=== PATIENT | male | born 1965 | race Caucasian/White ===

== ENCOUNTER 2018-05-07 11:01 | Inpatient (IN) ==
--- NOTE | 2018-05-07 11:47 | Diag Imaging Result Doc PS360 ---
EXAM: CHEST-2 VIEWS HISTORY: cough TECHNIQUE: PA and Lateral chest x-ray COMPARISON: None. FINDINGS: There is cardiomegaly. There is a moderate left pleural effusion with associated left lower lobe consolidation. There may be a hiatal hernia as well. Right lung is clear. Pulmonary vasculature is not congested. No pneumothorax. IMPRESSION: Moderate left pleural effusion with associated left lower lobe consolidation. . Electronically signed by Ne Latif 05/07/2018 11:44 AM
[2018-05-07 11:58] LABS: INFLUENZA A NEGATIVE (NEGATIVE); INFLUENZA B NEGATIVE (NEGATIVE)
[2018-05-07 12:50] LABS: BASO# 0.03 X1000 (0.0-0.2); BASO% 0.2 % (0.0-0.8); EOS# 0.25 X1000 (0.0-0.7); EOS% 1.8 % (0.0-10.0); HEMATOCRIT 39.2 % (42.0-52.0); HEMOGLOBIN 12.8 g/dL (14.0-18.0); IMM GRAN# 0.06 X1000 (0.0-0.04); IMM GRAN% 0.4 % (0.0-0.5); LYMPH# 0.96 X1000 (1.2-3.4); LYMPH% 6.7 % (20.5-51.1); MCH 30.8 PG (27-31); MCHC 32.7 g/dL (33-37); MCV 94.2 FL (81-99); MONO# 1.82 X1000 (0.11-0.59); MONO% 12.8 % (1.7-9.3); MPV 10.1 FL (7.4-10.4); NEUT# 11.15 X1000 (1.4-6.5); NEUT% 78.1 % (42.2-75.2); PLT 330 X1000 (130-400); RBC 4.16 XMIL (4.7-6.1); RDW 16.5 % (11.5-14.5); WBC 14.27 X1000 (4.8-10.8)
[2018-05-07 13:04] LABS: INR 1.06; PROTIME 14.3 Seconds (11.0-16.0)
[2018-05-07 13:05] LABS: PTT 33.4 Seconds (22.3-41.8)
[2018-05-07 13:10] LABS: AGAP 11; ALBUMIN 3.5 g/dL (3.5-5.0); ALKALINE PHOSPHATASE 82 U/L (32-122); BUN 5 mg/dL (8-22); CALCIUM 8.2 mg/dL (8.8-10.2); CHLORIDE 101 mmol/L (98-107); COSMO 279; CREATININE 0.9 mg/dL (0.7-1.2); ESTIMATED GFR > 60; GLUCOSE 113 mg/dL (70-104); GOT 11 U/L (10-34); GPT 9 U/L (10-44); POTASSIUM 3.3 mmol/L (3.5-5.1); SODIUM 141 mmol/L (136-145); TCO2 28 mmol/L (25-35); TOTAL PROTEIN 5.9 g/dL (6.3-8.3)
[2018-05-07 13:55] LABS: BILIRUBIN URINE NEGATIVE (NEGATIVE); BLOOD URINE NEGATIVE (NEGATIVE); CLARITY SL. CLOUDY (CLEAR); COLOR YELLOW; GLUCOSE URINE NEGATIVE (NEGATIVE); KETONE URINE NEGATIVE (NEGATIVE); LEUKOCYTES URINE NEGATIVE (NEGATIVE); NITRITE URINE NEGATIVE (NEGATIVE); PROTEIN URINE NEGATIVE (NEGATIVE); UROBILINOGEN URINE NORMAL
[2018-05-07] MEDS ORDERED: VANCOMYCIN 1 GM/NS 1 GM/250 ML IVPB IV ONE (13:55)
[2018-05-07 14:10] LABS: URINE BACTERIA 1+ /HFP
[2018-05-07 14:11] LABS: URINE CAST NONE SEEN /LPF; URINE CRYSTAL NONE SEEN /HPF; URINE EPITHELIAL CELLS <10 /HPF (<10); URINE SOURCE CLEAN CATCH; URINE YEAST NONE SEEN /HPF
[2018-05-07 14:21] LABS: INFLUENZA A NEGATIVE (NEGATIVE); INFLUENZA B NEGATIVE (NEGATIVE)
[2018-05-07] MEDS ORDERED: NS 1,000 ML IV ONE ×3 (14:25→16:02)
--- NOTE | 2018-05-07 14:39 | EKG Report ---
Test Performed on : 05/07/2018 12:40:09 PM Test Reason : ER Blood Pressure : / mmHG Vent. Rate : 101 BPM Atrial Rate : 101 BPM P-R Int : 152 ms QRS Dur : 082 ms QT Int : 336 ms P-R-T Axes : 037 003 240 degrees QTc Int : 435 ms Sinus tachycardia. with fusion complexes Left ventricular hypertrophy with repolarization abnormality Possible Inferior infarct , age undetermined Anterior infarct , age undetermined Abnormal ECG No previous ECGs available Unconfirmed Result
[2018-05-07] MEDS ORDERED: MERREM 1 GM in NS 50 ML IV ONE (15:24)
[2018-05-07] MEDS ORDERED: DUONEB (A & A) INH ONE (16:02)
[2018-05-07] MEDS ORDERED: MORPHINE IV ONE (16:02)
[2018-05-07] MEDS ORDERED: TYLENOL PO PRN (16:02)
[2018-05-07] MEDS ORDERED: ZOFRAN IV ONE (16:02)
[2018-05-07] MEDS ORDERED: DUONEB (A & A) INH SCH (16:02)
--- NOTE | 2018-05-07 17:51 | PROVIDER DOCUMENTATION ---
This chart was entered by Janay Mcadams Scribe, acting as scribe for Amadeo Mcadams MD. HPI-Chest Pain - General Chief Complaint: General Adult Stated Complaint: POSS. PNEUMONIA Time Seen by Provider: 05/07/18 11:57 Source: patient, family Allergies/Adverse Reactions: Patient Allergies Allergy/AdvReac Type Severity Reaction Status Date / Time Penicillins Allergy Unknown Verified 05/07/18 11:09 Home Medications: Home Medication List Medication Instructions Recorded Confirmed Last Taken Type Methocarbamol [Robaxin-750] 750 mg PO TID #15 tab 07/20/17 05/07/18 Unknown Rx Aspirin [Lo-Dose Aspirin EC] 1 tab PO DAILY 05/07/18 05/07/18 Unknown History Clonidine HCl 1 tab PO BID 05/07/18 05/07/18 Unknown History Clopidogrel Bisulfate [Clopidogrel] 1 tab PO DAILY 05/07/18 05/07/18 Unknown History Diazepam 1 tab PO PRN PRN 05/07/18 05/07/18 Unknown History Enalapril Maleate 1 tab PO DAILY 05/07/18 05/07/18 Unknown History Methotrexate 15 mg PO DIRECTED 05/07/18 05/07/18 Unknown History Pantoprazole Sodium [Protonix] 1 tab PO DAILY 05/07/18 05/07/18 Unknown History Prednisone 1 tab PO DAILY 05/07/18 05/07/18 Unknown History Tamsulosin HCl 1 cap PO DAILY 05/07/18 05/07/18 Unknown History Tramadol HCl/Acetaminophen 1 tab PO PRN PRN 05/07/18 05/07/18 Unknown History [Tramadol-Acetaminophn 37.5-325] - History of Present Illness-CP Nature of Presenting Problem: 53 yom with cardiac stents, RA and recent hx of pna presents to ed with cc of chest pains intermittently sternal since last monday. Sharp in nature. Reports last monday started having cp and cough went to urgent care dx with pna and tx with levaquin, rocephin and steroid. Reports feeling better until yesterday when started having sob, fever and sternal chest pain sharp that radiates into neck and back. Reports has a followup CT tomorrow at the [facility].. Hx of interstitial fibrosis, copd. Sees Dr. Tai in [place] for [facility]. Location: reports: substernal Chest Pain Radiation: reports: neck, back Quality of Pain: reports: sharp Severity in ED: moderate (08/13) Onset/Duration: 24 hours ago Timing: still present, intermittent Review of Systems - Adult - REVIEW OF SYSTEMS - ADULT Constitutional: reports: fever. denies: chills, fatique Eyes: reports: no symptoms reported Ears, Nose, Mouth & Throat: denies: ear pain, sinus problem, throat pain Cardiovascular: reports: chest pain. denies: irregular heart rate, orthopnea, syncope Respiratory: reports: cough, shortness of breath. denies: dyspnea on exertion, pleurisy, wheezing Gastrointestinal: denies: abdominal pain, diarrhea, nausea, vomiting Genitourinary: reports: no symptoms reported Musculoskeletal: reports: no symptoms reported Integumentary: reports: no symptoms reported Neurological: reports: no symptoms reported Psychiatric: reports: no symptoms reported Endocrine: reports: no symptoms reported Hematologic/Lymphatic: reports: no symptoms reported Allergic/Immunologic: reports: no symptoms reported All Other Systems: Reviewed and Negative Past History - Adult - PAST MEDICAL HISTORY-ADULT Review of Records: reports: Nursing Assessment Review Major Childhood Illnesses: reports: denies history Cardiovascular: reports: HTN Respiratory: reports: COPD, lung disease, pneumonia Gastrointestinal: reports: denies history Obstetrical/Gynecological: reports: denies history Genitourinary: reports: denies history Musculoskeletal: reports: denies history Neurological: reports: denies history Endocrine/Immune: reports: denies history Other Conditions: reports: denies history - PRIOR SURGERIES/PROCEDURES Surgical/Procedure History: reports: cardiac stent, other (renal stents) - IMMUNIZATION STATUS Childhood Immunizations: See Nurse Assessment Flu Vaccine: See Nurse Assessment - FAMILY HISTORY Family History: reviewed, not pertinent - SOCIAL HISTORY Smoking: cigarettes, less than 1 pack/day Provider spent 3-5 mins advising pt. on dangers of tobacco.: Discussed manners to quit use, and f/u contacts for add'l counseling. Substance Use: none/never Physical Exam-General - PHYSICAL EXAM-ADULT Initial Vital Signs Reviewed: Yes - CONSTITUTIONAL General Appearance: appears well, alert, mild distress - EYES Eyes: PERRL/EOMI, pink conjunctivae - HEAD, EARS, NOSE, MOUTH & THROAT HENMT: moist mucous membranes - NECK Neck: non-tender, full range of motion, supple, normal inspection - RESPIRATORY Respiratory: chest non-tender, no pleuratic chest pain, no respiratory distress , no accessory muscle use, rales (more prominent on right than left), rhonchi ( more prominent on right than left.) - CARDIOVASCULAR Cardiovascular: no edema, no gallop, no JVD, no murmur, tachycardia - GASTROINTESTINAL (ABDOMEN) Abdominal Exam: non tender, soft, no organomegaly, no pulsatile mass - LYMPHATIC Lymphatic: no adenopathy - MUSCULOSKELETAL Back Exam: normal inspection Extremity: normal range of motion, non-tender, normal gait, pedal edema ( bilaterally) - SKIN Integumentary: normal color, normal turgor, warm/dry - NEUROLOGIC Neurologic: grossly normal - PSYCHIATRIC Psych/Mental Status: normal mood/affect, normal thought content, normal thought process, oriented x 3 - HEART Score HEART Score: History: Moderately Suspicious HEART Score: ECG: Non-Specific Repolarization Disturbance/LBBB/PM HEART Score: Age: 45-65 Years HEART Score: Risk Factors for Atherosclerotic Disease: 1 or 2 Risk Factors HEART Score: Troponin: < or = Normal Limit Total HEART Score:: 4 Progress - PLAN OF CARE/RESULTS Progress/Plan/Lab Results: Vital Signs - 8 hr 05/07/18 11:04 05/07/18 13:08 05/07/18 14:00 Temperature 98.4 F Pulse Rate 84 112 H 77 Respiratory Rate 20 22 20 Blood Pressure 145/59 143/88 147/102 O2 Sat by Pulse Oximetry 98 96 97 Laboratory Results - last 24 hr 05/07/18 05/07/18 05/07/18 11:05 12:20 12:20 WBC 14.27 H RBC 4.16 L Hgb 12.8 L Hct 39.2 L MCV 94.2 MCH 30.8 MCHC 32.7 L RDW Std Deviation 16.5 H Plt Count 330 MPV 10.1 Immature Gran % (Auto) 0.4 Neut % (Auto) 78.1 H Lymph % (Auto) 6.7 L Dukes % (Auto) 12.8 H Eos % (Auto) 1.8 Baso % (Auto) 0.2 Immature Gran # (Auto) 0.06 H Neut # (Auto) 11.15 H Lymph # (Auto) 0.96 L Dukes # (Auto) 1.82 H Eos # (Auto) 0.25 Baso # (Auto) 0.03 PT INR PTT (Actin FS) Sodium 141 Potassium 3.3 L Chloride 101 Carbon Dioxide 28 Anion Gap 11 BUN 5 L Creatinine 0.9 Estimated GFR/1.73 m2 > 60 BUN/Creatinine Ratio 6 Glucose 113 H Calculated Osmolality 279 Calcium 8.2 L Magnesium Total Bilirubin 0.80 AST 11 ALT 9 L Alkaline Phosphatase 82 Troponin T [id number] Pept Total Protein 5.9 L Albumin 3.5 Globulin 2.0 Albumin/Globulin Ratio 1.0 Plasma Lactate Urine Source Urine Color Urine Clarity Urine pH Ur Specific [place] Urine Protein Urine Ketones Urine Blood Urine Nitrite Urine Bilirubin Urine Urobilinogen Urine Microscopic RBC Urine WBC Ur Epithelial Cells Urine Crystals Urine Bacteria Urine Casts Urine Yeast Urine Glucose Influenza A (Rapid) NEGATIVE Influenza B (Rapid) NEGATIVE 05/07/18 05/07/18 05/07/18 12:20 12:20 12:20 WBC RBC Hgb Hct MCV MCH MCHC RDW Std Deviation Plt Count MPV Immature Gran % (Auto) Neut % (Auto) Lymph % (Auto) Dukes % (Auto) Eos % (Auto) Baso % (Auto) Immature Gran # (Auto) Neut # (Auto) Lymph # (Auto) Dukes # (Auto) Eos # (Auto) Baso # (Auto) PT 14.3 INR 1.06 PTT (Actin FS) 33.4 Sodium Potassium Chloride Carbon Dioxide Anion Gap BUN Creatinine Estimated GFR/1.73 m2 BUN/Creatinine Ratio Glucose Calculated Osmolality Calcium Magnesium 2.0 Total Bilirubin AST ALT Alkaline Phosphatase Troponin T [id number]-Imyiwtxrrcx Pept Total Protein Albumin Globulin Albumin/Globulin Ratio Plasma Lactate 0.9 Urine Source Urine Color Urine Clarity Urine pH Ur Specific [place] Urine Protein Urine Ketones Urine Blood Urine Nitrite Urine Bilirubin Urine Urobilinogen Urine Microscopic RBC Urine WBC Ur Epithelial Cells Urine Crystals Urine Bacteria Urine Casts Urine Yeast Urine Glucose Influenza A (Rapid) Influenza B (Rapid) 05/07/18 05/07/18 05/07/18 12:20 12:20 13:04 WBC RBC Hgb Hct MCV MCH MCHC RDW Std Deviation Plt Count MPV Immature Gran % (Auto) Neut % (Auto) Lymph % (Auto) Dukes % (Auto) Eos % (Auto) Baso % (Auto) Immature Gran # (Auto) Neut # (Auto) Lymph # (Auto) Dukes # (Auto) Eos # (Auto) Baso # (Auto) PT INR PTT (Actin FS) Sodium Potassium Chloride Carbon Dioxide Anion Gap BUN Creatinine Estimated GFR/1.73 m2 BUN/Creatinine Ratio Glucose Calculated Osmolality Calcium Magnesium Total Bilirubin AST ALT Alkaline Phosphatase Troponin T < 0.010 Ndf-N-Whknqiiqtkg Pept 1170 H Total Protein Albumin Globulin Albumin/Globulin Ratio Plasma Lactate Urine Source CLEAN CATCH Urine Color YELLOW Urine Clarity SL. CLOUDY A Urine pH 7.0 Ur Specific [place] 1.000 Urine Protein NEGATIVE Urine Ketones NEGATIVE Urine Blood NEGATIVE Urine Nitrite NEGATIVE Urine Bilirubin NEGATIVE Urine Urobilinogen NORMAL Urine Microscopic RBC Not Reportable Urine WBC NEGATIVE Ur Epithelial Cells <10 Urine Crystals NONE SEEN Urine Bacteria 1+ Urine Casts NONE SEEN Urine Yeast NONE SEEN Urine Glucose NEGATIVE Influenza A (Rapid) Influenza B (Rapid) 05/07/18 13:45 WBC RBC Hgb Hct MCV MCH MCHC RDW Std Deviation Plt Count MPV Immature Gran % (Auto) Neut % (Auto) Lymph % (Auto) Dukes % (Auto) Eos % (Auto) Baso % (Auto) Immature Gran # (Auto) Neut # (Auto) Lymph # (Auto) Dukes # (Auto) Eos # (Auto) Baso # (Auto) PT INR PTT (Actin FS) Sodium Potassium Chloride Carbon Dioxide Anion Gap BUN Creatinine Estimated GFR/1.73 m2 BUN/Creatinine Ratio Glucose Calculated Osmolality Calcium Magnesium Total Bilirubin AST ALT Alkaline Phosphatase Troponin T Fjw-M-Zigyqdsydks Pept Total Protein Albumin Globulin Albumin/Globulin Ratio Plasma Lactate Urine Source Urine Color Urine Clarity Urine pH Ur Specific [place] Urine Protein Urine Ketones Urine Blood Urine Nitrite Urine Bilirubin Urine Urobilinogen Urine Microscopic RBC Urine WBC Ur Epithelial Cells Urine Crystals Urine Bacteria Urine Casts Urine Yeast Urine Glucose Influenza A (Rapid) NEGATIVE Influenza B (Rapid) NEGATIVE Orders Category Date Time Status Saline Loc NOW Care 05/07/18 11:08 Active CHEST-2 VIEWS [RAD] Stat Exams 05/07/18 11:08 Completed BLOOD CULTURE [BLDCUL] Stat Lab 05/07/18 12:30 Received CBC WITH DIFF [HEME] Stat Lab 05/07/18 12:20 Completed COMPREHENSIVE METABOLIC PANEL [CHEM] Stat Lab 05/07/18 12:20 Completed Flu [INFLUENZA SCREEN PL] Stat Lab 05/07/18 11:[address] Stat Lab 05/07/18 13:45 Completed LACTATE, PLASMA [CHEM] Stat Lab 05/07/18 12:20 Completed MAGNESIUM [CHEM] Stat Lab 05/07/18 12:20 Completed PRO B-NATRIURETIC PEPTIDE Stat Lab 05/07/18 12:20 Completed PROTIME WITH INR [COAG] Stat Lab 05/07/18 12:20 Completed PTT [COAG] Stat Lab 05/07/18 12:20 Completed TROPONIN T Stat Lab 05/07/18 12:[address] W/POSS RFLX CULT [URINALYSIS] Stat Lab 05/07/18 13:04 Completed 0.9% Sodium Chloride Inj [Ns] 1,000 ml Med 05/07/18 14:25 Discontinued IV 999 mls/hr Meropenem [Merrem] 1 gm Med 05/07/18 15:24 Active 0.9% Sodium Chloride Inj [Ns] 50 ml IV NOW Ns 1000 ml IV Bolus X1 Med 05/07/18 15:40 Ordered 0.9% Sodium Chloride Inj [Ns] 1,000 ml IV 999 mls/hr Vancomycin 1 gm/Ns Med 05/07/18 13:55 Discontinued 1 gm in 250 ml IV NOW Pulse Oximetry Stat Oth 05/07/18 11:08 Active EKG [EKG] Routine Ther 05/07/18 Draft Transfer/Admit Order [TRANSFER] Routine Transfer 05/07/18 15:17 Ordered Result Diagrams: 05/07/18 12:20 05/07/18 12:20 - REASSESSMENT Reassessment #1 Time Reassessed: 14:20 (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 hr now 70/min w/ less PACs. [facility] on diversion at this time. admit to [facility].) Reassessment #3 Time Reassessed: 15:41 Status: improving (BP 147/74, HR 75. FEELING BETTER.) - EKG 1 Time of EKG reading by physician:: 12:40 EKG Read and Signed by:: Amadeo Mcadams EKG Interpretation (*Must complete 3 of following elements*): Abnormal ( possible inferior infarct age undetermined. Anterior infarct age undetermined.) Rate: 101 Rhythm: sinus tachy with fusion complexes [place]: normal QRS: LVH ST Wave: normal - XRAY 1 XRAY: Bilateral XRAY Study: Chest Impression: Abnormal (IMPRESSION: Moderate left pleural effusion with associated left lower lobe consolidation. . Electronically signed by Ne Latif 05/07/2018 11:44 AM) - CONSULTS/PCP/HOSPITALIST Notification #1 *Consult/PCP/Hospitalist*: Dr. Kirby- Environmental Epidemiologist Time Discussed: 14:28 (- On Diversion) #2 Consult: Dr. Kern Time Discussed: 14:00 Consult Disposition: Admit (if Environmental Epidemiologist is on Diversion at [facility] admit) Departure - Departure Date of Disposition Decision: 05/07/18 Time of Disposition Decision: 14:20 DIAGNOSIS: Chest pain, Pneumonia, PAC (premature atrial contraction), Pulmonary fibrosis, Rheumatoid arthritis, Coronary artery disease Disposition: ADMITTED INPATIENT 09 Certified Medical Emergency: Emergent Condition: Stable Referrals and Follow-Ups: Sadie Roman CRNP [Primary Care Provider] - - Critical Care Note This patient required my direct & personal management of CC.: No Attestation - Physician/ LUCILLE Attestation Patient care was provided by Advanced Practice Provider:: No The physician spent face to face time with patient:: Yes Advanced Practice Provider documentation review:: Supervising physician onsite and consulted in the evaluation and care of this patient. The physician did have a face to face encounter with the patient. This chart was documented by the indicated scribe, (Janay Mcadams Scribe) and accurately reflects the services I performed and decisions made by me, Amadeo Mcadams MD, as attested by the provider's signature.
[2018-05-07] MEDS: CARDIZEM PO SCH ×2 (18:00→23:54)
[2018-05-07] MEDS ORDERED: NICODERM PATCH TD PRN (18:38)
[2018-05-07] MEDS ORDERED: VANCOMYCIN IV PER PHARMACY MISC SCH (18:45)
[2018-05-07] MEDS ORDERED: SODIUM CHLORIDE 0.9% INJ SCH (18:45)
--- NOTE | 2018-05-07 18:59 | HISTORY AND PHYSICAL ---
CHIEF COMPLAINT: Is intermittent chest pain, shortness of breath, cough. HISTORY OF PRESENT ILLNESS: This is a 53-year-old gentleman with a history of steroid dependent rheumatoid arthritis, CAD, COPD, hypertension, who presents to the emergency room complaining of a recent diagnosis of pneumonia with continued cough, subjective fever, substernal chest pain despite Levaquin and steroids. He describes the chest pain as a sharp pain. It is present on coughing and taking a deep breath. It is not present when he is sitting still. He does have a history of a left pleural effusion. He states that this has been followed at the [facility]. In fact, he was supposed to have an appointment in the next day or 2 to have a followup CAT scan and treatment will be decided based on results of the CAT scan. PAST MEDICAL HISTORY: COPD, pulmonary fibrosis, steroid dependent rheumatoid arthritis, hypertension, CAD status post cardiac stents and peripheral vascular disease status post bilateral iliac stents. History of GI bleed. PAST SURGICAL HISTORY: Bilateral iliac stents. SOCIAL HISTORY: He smokes about a pack a day. He denies alcohol or illicit drug use, he does live with his . ALLERGIES: Penicillin which causes unknown reaction. HOME MEDICATIONS: A list will be obtained by the nursing staff and once verified will review restarted as appropriate. REVIEW OF SYSTEMS: Is discussed with patient with pertinent positives stated in the HPI. He denied any syncope or dizziness, any palpitations, a productive cough, any nausea, vomiting, diarrhea, constipation, any black or bloody vomitus or stools, any hematuria, dysuria, frequency, urgency. PHYSICAL EXAMINATION: GENERAL: This is a 53-year-old gentleman who is lying on the stretcher in the emergency room in no distress. Family members are at bedside. VITAL SIGNS: Blood pressure is 150/90 with a heart rate of 77, respirations are 18, temperature is 97.6 degrees oral with room air saturations 96 to 99%. HEENT: Pupils are equal, round, react to light EOMs are intact. Sclerae are anicteric. Head is normocephalic, atraumatic. Mucous membranes are moist. NECK: Supple with trachea midline. CARDIOVASCULAR: Regular rate and rhythm. He is tachycardic. He has pedal edema noted bilateral with peripheral pulses palpable x4 extremities. PULMONARY: He does have some rales and rhonchi bilaterally with right greater than left. Chest rises and falls symmetric with respiration. Chest wall is tender to palpation . GASTROINTESTINAL: Abdomen is soft, nontender, nondistended. Bowel sounds in all 4 quadrants. NEUROLOGIC: He is alert, oriented x3. SKIN: Warm and dry. LABS: WBC is 14.2 with hemoglobin 12.8, hematocrit 39.2, and platelets of 330,000. Sodium 141, potassium 3.3, BUN 5, creatinine 0.9 with a glucose of 113. Troponin is negative. Urinalysis is essentially negative with flu A and B negative. Blood cultures are pending. Chest x-ray reveals moderate left pleural effusion with associated left lower lobe consolidation. ASSESSMENT AND PLAN: 1. Chest pain. 2. Left lower lobe pneumonia. 3. History of pulmonary fibrosis. 4. Steroid dependent rheumatoid arthritis. 5. History of coronary artery disease. 6. Leukocytosis most likely secondary to pneumonia. 7. Tobacco use and abuse. 8. History of gastrointestinal bleed. PLAN: The patient will be admitted to CICU at [facility]. Will consult Dr. Nuñez in pulmonology. Will identify his home medications and continue as appropriate. We will obtain a CBC and CMP in the morning. We will get an echocardiogram. We will get a CT of the chest with contrast, start DuoNeb q.4 hours. He was having episodes of tachycardia or bradycardia. I did discuss this with Dr. Booker Buckley, cardiology and we will start Cardizem 30 mg p.o. q.6 hours. He was given Merrem and vancomycin in the emergency room. We will continue these at present with vancomycin dosed per pharmacy. We will give a nicotine patch as needed for craving. Will start Protonix IV at present. Further treatments pending hospital course. Dictated by KAREN De Luna for Jarad Kern MD This chart was documented by, KAREN De Luna and accurately reflects the services performed, treatment plan and medical decisions as attested by the providers signature Jarad Kern MD. cc: KAREN De Luna MD [facility]
[2018-05-07] MEDS: CATAPRES PO SCH ×2 (19:39→23:21)
[2018-05-07] MEDS: PROTONIX IV SCH ×2 (19:39→23:22)
[2018-05-07] MEDS: DUONEB (A & A) INH SCH ×2 (20:40→23:30)
[2018-05-07] MEDS ORDERED: VANCOMYCIN 1,200 MG in NS 250 ML IV ONE (21:00)
[2018-05-07] MEDS: MORPHINE IV PRN (21:02)
--- NOTE | 2018-05-07 22:51 | HISTORY AND PHYSICAL ---
CHIEF COMPLAINT: Chest pain. HISTORY OF PRESENT ILLNESS: The patient is a 53-year-old male who has a known history of coronary stenting, rheumatoid arthritis and recent history of pneumonia. He had been on antibiotics at home but states he has had continue cough, congestion. Does actually have an appointment tomorrow to follow up on CT scan [facility]. He has a history of COPD and pulmonary fibrosis. Will admit him to the hospital, IV fluids, antibiotics, will transfer him to [facility] so that pulmonology can also participate in his care and will follow. cc: Jarad Kern MD
[2018-05-08] MEDS: MORPHINE IV PRN ×5 (01:47→20:37)
[2018-05-08] MEDS: DUONEB (A & A) INH SCH ×6 (03:37→23:30)
[2018-05-08] MEDS: CARDIZEM PO SCH ×5 (05:16→23:00)
[2018-05-08 05:24] LABS: BASO# 0.03 X1000 (0.0-0.2); BASO% 0.3 % (0.0-0.8); EOS# 0.35 X1000 (0.0-0.7); EOS% 2.9 % (0.0-10.0); HEMATOCRIT 34.1 % (42.0-52.0); HEMOGLOBIN 10.9 g/dL (14.0-18.0); IMM GRAN# 0.05 X1000 (0.0-0.04); IMM GRAN% 0.4 % (0.0-0.5); LYMPH# 2.26 X1000 (1.2-3.4); LYMPH% 18.8 % (20.5-51.1); MCH 30.8 PG (27-31); MCV 96.3 FL (81-99); MONO# 1.46 X1000 (0.11-0.59); MONO% 12.2 % (1.7-9.3); NEUT# 7.85 X1000 (1.4-6.5); NEUT% 65.4 % (42.2-75.2); PLT 297 X1000 (130-400); RBC 3.54 XMIL (4.7-6.1); RDW 16.8 % (11.5-14.5)
[2018-05-08 05:46] LABS: AGAP 13; ALBUMIN 2.9 g/dL (3.5-5.0); ALKALINE PHOSPHATASE 66 U/L (32-122); BUN 7 mg/dL (8-22); CALCIUM 7.6 mg/dL (8.8-10.2); CHLORIDE 105 mmol/L (98-107); COSMO 279; CREATININE 0.9 mg/dL (0.7-1.2); ESTIMATED GFR > 60; GLUCOSE 90 mg/dL (70-104); GOT 10 U/L (10-34); GPT 6 U/L (10-44); POTASSIUM 2.8 mmol/L (3.5-5.1); SODIUM 141 mmol/L (136-145); TCO2 23 mmol/L (25-35); TOTAL BILIRUBIN 0.59 mg/dL (0.20-1.00); TOTAL PROTEIN 5.7 g/dL (6.3-8.3)
[2018-05-08] MEDS ORDERED: PROTONIX PO SCH (07:00)
[2018-05-08] MEDS: FLOMAX PO SCH ×2 (08:05→08:06)
[2018-05-08] MEDS: CATAPRES PO SCH ×2 (08:05→20:38)
[2018-05-08] MEDS: PROTONIX IV SCH ×2 (08:05→21:08)
[2018-05-08] MEDS ORDERED: PLAVIX PO SCH (09:00)
[2018-05-08] MEDS ORDERED: VASOTEC PO SCH (09:00)
[2018-05-08] MEDS ORDERED: PREDNISONE PO SCH (09:00)
[2018-05-08] MEDS: VANCOMYCIN 1,850 MG in NS 500 ML IV SCH ×2 (09:32→20:38)
[2018-05-08] MEDS ORDERED: KLOR-CON PO ONE ×2 (09:43→14:00)
--- NOTE | 2018-05-08 09:46 | Diag Imaging Result Doc PS360 ---
CT THORAX W/CONTRAST - 05/08/2018 INDICATION: pleural effusion, leukocytosis, dyspnea COMPARISON: Chest x-ray 05/07/2018 FINDINGS: There is a trace right and moderate left pleural effusion. There is some peripheral interstitial opacity bilaterally that appears atypical. This peripheral interstitial opacity is very stable from prior chest CTs from 04/08/2018 and 09/11/2015. Upper abdominal images are grossly normal. There is now much COPD. There are moderate degenerative changes of the spine. No acute or suspicious bony lesion. IMPRESSION: 1. Bilateral pleural effusions, small on the right and moderate on the left. 2. Chronic peripheral interstitial opacities compatible with mild pulmonary fibrosis. The cause is uncertain. This exam was performed using automated exposure control, adjustment of mA or kV according to patient size, and/or use of iterative reconstruction technique Electronically signed by Anibal Harley 05/08/2018 9:44 AM
[2018-05-08] MEDS: VASOTEC PO SCH (11:25)
--- NOTE | 2018-05-08 13:55 | PROGRESS NOTE ---
DATE: 05/08/2018 SUBJECTIVE: Today Mr. De León refers to be doing slightly okay. Mr. De León has a history of rheumatoid arthritis, pulmonary fibrosis, coronary artery disease. He said he has been treated in the past month for pneumonia, multiple cycles of different antibiotics, came this time because of progressively worsening shortness of breath. OBJECTIVE: Vital signs: Blood pressure is 129/66, pulse is 74, respirations 18, temperature 98.2 degrees. General: Mr. De León is a 53-year-old gentleman. He is in bed. He is not in any cardiopulmonary distress. HEENT: Mucosa is pink and moist. Anicteric. Acyanotic. Neck: Supple. Chest: Air entry is bilaterally reduced. There is diffuse end-expiratory wheezing and rhonchi. There are also some fine crackles posteriorly. Cardiovascular: Regular rate, regular rhythm. No murmurs, no rubs, no gallops. Abdomen: Soft, nontender. Bowel sounds present. 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 There is no focal neurological deficit. LABORATORY DATA: WBC is 12.00, hemoglobin is 10.9, platelet count of 297,000. Chemistry is also reviewed, potassium is 2.8. Rest of chemistry is unremarkable. So far, blood cultures have not grown anything. IMAGING: Chest x-ray did show moderate left pleural effusion with associated left lower lobe consolidation. A CT scan of the chest shows bilateral pleural effusions, more on the right and moderate on the left, chronic peripheral interstitial opacity compatible with mild pulmonary fibrosis. ASSESSMENT AND PLAN: 1. Respiratory distress on presentation secondary to bilateral pleural effusion. 2. History of interstitial lung disease, suspected to be related to methotrexate-induced chronic lung injury versus rheumatoid arthritis lung complication, or both. 3. Bilateral pleural effusion, left more than right. There seems to be some loculation to it. There is a plan for thoracentesis later this week. 4. History of rheumatoid arthritis, steroid dependent. The patient is also on methotrexate. Follows up with a senior information security analyst in [place]. 5. Severe peripheral vascular disease and coronary artery disease status post cardiac stent as well as bilateral iliac stents. Patient is on Plavix. This will be withheld for about 5 days before the thoracentesis can be done. 6. Bronchospasm. The patient is wheezing, has some rhonchi. Continues to smoke. I think he also has an underlying chronic obstructive pulmonary disease that has probably not been diagnosed. Pulmonary Medicine is on board. Patient is on antibiotics, steroids and bronchodilation therapy as well. cc: Cr Jimenez MD
[2018-05-08] MEDS ORDERED: ULTRACET 37.5MG/325MG PO PRN (13:59)
--- NOTE | 2018-05-08 14:14 | ECHO REPORT ---
ORDER DATE: 05/07/2018 INDICATION: Chest pain, coronary disease. FINDINGS: 1. The right atrium appears normal in size at 3.4 cm. 2. Mild tricuspid regurgitation. RV systolic pressure of 37. 3. Normal RV size and systolic function. 4. Mild pulmonic insufficiency. 5. Normal left atrial size at 3.5 cm. 6. No mitral valve prolapse. Mild mitral regurgitation. 7. Dilated left ventricle with an end-diastolic dimension of 5.9 cm. There is moderate left ventricular hypertrophy with a posterior and interventricular septal wall thickness of 1.6 cm each. Minimal reduction in LV systolic function. This is a somewhat difficult study. I believe the estimated ejection fraction is in the 40 to 45 percent range with global hypokinesis. 8. Aortic valve opens well. It is trileaflet. Mild insufficiency. No stenosis. 9. Aorta appears normal in visualized segments. 10. No pericardial effusion seen. cc: MD Pam Meadows CRNP
[2018-05-08] MEDS: LEVAQUIN 500 MG/D5W 500 MG/100 ML IVPB IV SCH (14:27)
[2018-05-08] MEDS: ROBAXIN PO SCH (18:32)
[2018-05-08] MEDS: SOLU-MEDROL IV SCH (18:34)
--- NOTE | 2018-05-08 20:06 | CONSULTATION ---
DATE OF CONSULTATION: 05/08/2018 REQUESTING PROVIDER: KAREN De Luna REASON FOR CONSULTATION: Pulmonary fibrosis, dyspnea, pleural effusion. HISTORY OF PRESENT ILLNESS: This is a 53-year-old male with medical history of COPD with ongoing tobacco use; pulmonary fibrosis; steroid-dependent rheumatoid arthritis; hypertension; coronary artery disease; peripheral vascular disease. He presented to the ER yesterday with worsening exertional shortness of breath and sharp pleuritic chest pain for about 1 week. Chest x-ray in the ER revealed left lower lobe pneumonia with moderate left pleural effusion. He has been admitted to the [facility] for further evaluation and management. At the time of my examination, the patient is lying in bed with his and daughter at the bedside. He reports he has been treated for pneumonia outpatient with different antibiotics for about 2 months. Despite the antibiotic therapy, he keeps having productive cough, fever and shortness of breath. He developed pleuritic chest pain from mid chest radiating to left low chest. He has left pleural effusion for over 2 weeks, which has been followed by the [facility], and he was supposed to have a followup CAT scan there today. He reports no wheezing, nausea, poor appetite, unintentional weight change, hemoptysis or palpitations. PAST MEDICAL AND SURGICAL HISTORY: 1. COPD with ongoing tobacco use. 2. Pulmonary fibrosis. 3. Steroid-dependent rheumatoid arthritis. 4. Hypertension. 5. Coronary artery disease, status post cardiac stent. 6. Peripheral vascular disease, status post bilateral iliac stents. SOCIAL HISTORY: The patient is and lives with his family. He smokes about a pack per day for 43 years. His and his daughter are daily smokers, too. He has no history of alcohol or illicit drug use. FAMILY HISTORY: Mother had colon cancer. Father, who was a nonsmoker, had lung cancer. One sister had heart attack. ALLERGIES: Penicillins. REVIEW OF SYSTEMS: A 10-point review of systems was conducted and the pertinent listed within the HPI, otherwise noncontributory. PHYSICAL EXAMINATION: Vital signs: Temperature 99.6 degrees, blood pressure 150/98, pulse 61, respiratory rate 18, oxygen saturation 96% on room air. General: The patient is lying comfortably in bed with family at the bedside. He is in no acute distress. HEENT: Atraumatic. Trachea midline. Mucosa pink and moist. Respiratory: Lung expansion equal bilaterally. Auscultation reveals bilateral rhonchi and early inspiratory crackles with diminished breathing sounds bilaterally. Cardiovascular: Regular rate and rhythm. Gastrointestinal : Bowel sounds normoactive in all 4 quadrants. Soft, nontender, nondistended. Extremities: No pedal edema. Dorsalis pedis 2+ bilaterally. Neurologic: Alert and oriented x3. Speech fluent. Follows commands. DIAGNOSTIC DATA: Chest CT reveals bilateral pleural effusions, small on the right and moderate on the left; chronic peripheral interstitial opacities, compatible with mild pulmonary fibrosis. LABORATORY DATA: White blood cells 12.00, hemoglobin 10.9, hematocrit 34.1, platelet 297,000. Sodium 141, potassium 2.8, chloride 105, carbon dioxide 23, BUN 11, creatinine 0.9, glucose 90. ASSESSMENT: This is a 53-year-old male with medical history of chronic obstructive pulmonary disease with ongoing tobacco use, pulmonary fibrosis, steroid- dependent rheumatoid arthritis, hypertension, coronary artery disease and peripheral vascular disease. He has been admitted to the [facility] since 05/07/2018 with shortness of breath, pleuritic chest pain, bilateral pleural effusion and left lower lobe pneumonia. 1. Bilateral pleural effusion, left worse than right. 2. Left lower lobe pneumonia. 3. Mild pulmonary fibrosis. 4. Pleuritic chest pain. 5. Chronic obstructive pulmonary disease with ongoing tobacco use, likely in exacerbation. 6. Exertional dyspnea. PLAN: 1. Supplemental oxygen as needed. 2. Plavix on hold for a week. Will plan thoracentesis next week. 3. Continue antibiotics, steroid and bronchodilators. 4. Followup with CBC and BMP. 5. Educate the patient and his family on the importance and the means of smoking sensation. 6. Continue GI and DVT prophylaxis. 7. Additional recommendations pending hospital course. 8. We have discussed our plan with the patient and his family. All questions answered. Thank you for the courtesy of this consult. Dictated by KAREN Pineda for Remy Norman MD cc: KRAEN Pineda MD [facility]
[2018-05-08] MEDS: VALIUM PO PRN (21:16)
[2018-05-09] MEDS: MORPHINE IV PRN ×3 (01:33→18:33)
[2018-05-09] MEDS: DUONEB (A & A) INH SCH ×6 (03:35→22:37)
[2018-05-09] MEDS: CARDIZEM PO SCH ×4 (05:04→23:34)
[2018-05-09] MEDS: SOLU-MEDROL IV SCH ×2 (05:05→18:26)
[2018-05-09] MEDS: VALIUM PO PRN ×3 (05:48→20:44)
[2018-05-09 06:08] LABS: BASO# 0.01 X1000 (0.0-0.2); BASO% 0.1 % (0.0-0.8); IMM GRAN# 0.03 X1000 (0.0-0.04); IMM GRAN% 0.3 % (0.0-0.5); LYMPH# 0.44 X1000 (1.2-3.4); LYMPH% 3.9 % (20.5-51.1); MCH 30.6 PG (27-31); MCHC 31.4 g/dL (33-37); MCV 97.2 FL (81-99); MONO% 3.5 % (1.7-9.3); MPV 10.3 FL (7.4-10.4); NEUT# 10.47 X1000 (1.4-6.5); NEUT% 92.2 % (42.2-75.2); PLT 299 X1000 (130-400); RDW 16.5 % (11.5-14.5); WBC 11.35 X1000 (4.8-10.8)
[2018-05-09 06:13] LABS: AGAP 12; BUN 8 mg/dL (8-22); CALCIUM 8.5 mg/dL (8.8-10.2); CHLORIDE 103 mmol/L (98-107); COSMO 280; CREATININE 0.9 mg/dL (0.7-1.2); ESTIMATED GFR > 60; GLUCOSE 210 mg/dL (70-104); POTASSIUM 3.6 mmol/L (3.5-5.1); SODIUM 138 mmol/L (136-145); TCO2 23 mmol/L (25-35)
[2018-05-09] MEDS: VANCOMYCIN 1,850 MG in NS 500 ML IV SCH ×2 (09:01→21:16)
[2018-05-09] MEDS: CATAPRES PO SCH ×2 (09:01→20:44)
[2018-05-09] MEDS: PROTONIX IV SCH ×2 (09:02→20:44)
[2018-05-09] MEDS: ASPIRIN EC PO SCH (09:02)
[2018-05-09] MEDS: FLOMAX PO SCH (09:02)
[2018-05-09] MEDS: ROBAXIN PO SCH ×3 (09:02→17:11)
[2018-05-09] MEDS: VASOTEC PO SCH (10:44)
--- NOTE | 2018-05-09 13:09 | PROGRESS NOTE ---
DATE: 05/09/2018 SUBJECTIVE: This morning Mr. De León refers to be doing fairly okay. Shortness of breath seems to be getting better. OBJECTIVE: Vital Signs: Blood pressure is 140/86, pulse of 78, respiration is 18, temperature is 97.7 degrees. Patient is saturating 98%. General: On general exam, Mr. De León is a 53-year-old male. He is in bed. He did not seem to be in any cardiopulmonary distress. HEENT: Mucosa is pink and moist. Anicteric. Acyanotic. Neck: Supple. Cardiovascular: Regular rate and rhythm. There are no murmurs, no rubs, no gallops. GI: Abdomen is soft, is distended, but nontender. Bowel sounds present. Extremities: No pedal edema. DESKTOP SUPPORT MANAGER: Patient is awake, alert, oriented. There is no focal neurological deficit. LABORATORY DATA: WBC is 11.35, hemoglobin is 11.0, platelet count of 299. Chemistry is also reviewed, completely normal. CURRENT MEDICATIONS: Have all been reviewed. No changes. ASSESSMENT: 1. Acute hypoxemic respiratory failure on presentation secondary to bilateral pleural effusion. Etiology is still unknown. 2. History of interstitial lung disease related to the combination of methotrexate-induced chronic lung injury and rheumatoid arthritis lung complication. 3. Bilateral pleural effusion, left more than right. The patient is pending thoracentesis hopefully on Monday and it is because he was on Plavix. 4. History of rheumatoid arthritis, steroid dependent. The patient is getting intravenous methylprednisolone for now. 5. Severe peripheral vascular disease and coronary artery disease, status post stents. 6. Bronchospasms, improved. We suspect the patient has an underlying chronic obstructive pulmonary disease that needs to be diagnosed at a later date with pulmonary function tests. 7. Congestive heart failure with ejection fraction of 40% to 45%. The echocardiogram does show global hypokinesis. This could potentially be the source of the pleural effusion as well. Unsure why he has this. We will do a stress test and consult Cardiology once the stress test is done. cc: Cr Jimenez MD
[2018-05-09] MEDS: LEVAQUIN 500 MG/D5W 500 MG/100 ML IVPB IV SCH (15:17)
[2018-05-09] MEDS ORDERED: HALL'S COUGH LOZENGE MT PRN (17:22)
[2018-05-09] MEDS ORDERED: LASIX IV ONE (23:26)
[2018-05-10] MEDS: MORPHINE IV PRN ×3 (00:57→13:59)
[2018-05-10] MEDS ORDERED: LANOXIN IV ONE ×2 (02:07→06:25)
[2018-05-10] MEDS ORDERED: CARDIZEM IV ONE ×2 (02:08→04:40)
[2018-05-10] MEDS ORDERED: CARDIZEM 125 MG in NS 100 ML IV SCH (02:15)
[2018-05-10] MEDS: DUONEB (A & A) INH SCH (03:35)
[2018-05-10] MEDS: CARDIZEM PO SCH (06:00)
[2018-05-10] MEDS ORDERED: ATIVAN ONE (06:11)
[2018-05-10] MEDS ORDERED: LOPRESSOR IV ONE (06:25)
[2018-05-10] MEDS ORDERED: ATIVAN IV ONE (06:54)
[2018-05-10] MEDS: SOLU-MEDROL IV SCH (07:52)
[2018-05-10 07:53] LABS: CK INDEX 10.9 (0.0-2.5); CK-MB 65.4 ng/mL (0.0-5.0)
[2018-05-10] MEDS ORDERED: LANOXIN ONE (07:56)
[2018-05-10 08:10] LABS: BASO# 0.02 X1000 (0.0-0.2); HEMATOCRIT 43.1 % (42.0-52.0); HEMOGLOBIN 13.6 g/dL (14.0-18.0); IMM GRAN# 0.29 X1000 (0.0-0.04); IMM GRAN% 0.7 % (0.0-0.5); LYMPH# 0.59 X1000 (1.2-3.4); LYMPH% 1.3 % (20.5-51.1); MCH 30.2 PG (27-31); MCHC 31.6 g/dL (33-37); MCV 95.6 FL (81-99); MONO# 1.27 X1000 (0.11-0.59); MONO% 2.9 % (1.7-9.3); MPV 10.8 FL (7.4-10.4); NEUT# 42.14 X1000 (1.4-6.5); NEUT% 95.1 % (42.2-75.2); PLT 424 X1000 (130-400); RBC 4.51 XMIL (4.7-6.1); RDW 16.7 % (11.5-14.5); WBC 44.31 X1000 (4.8-10.8)
[2018-05-10] MEDS ORDERED: MORPHINE IV ONE (08:19)
[2018-05-10] MEDS ORDERED: ASPIRIN PO STA (08:20)
[2018-05-10] MEDS ORDERED: NITROGLYCERIN ONE (08:22)
[2018-05-10] MEDS ORDERED: NITROGLYCERIN TOP ONE (08:22)
[2018-05-10] MEDS ORDERED: MORPHINE ONE (08:22)
[2018-05-10] MEDS ORDERED: ASPIRIN ONE (08:22)
[2018-05-10] MEDS ORDERED: HEPARIN IV ONE (08:26)
[2018-05-10 08:29] LABS: AGAP 16; BANDS 4 % (0-1); BUN 13 mg/dL (8-22); CALCIUM 8.3 mg/dL (8.8-10.2); CHLORIDE 101 mmol/L (98-107); COSMO 285; ESTIMATED GFR > 60; GLUCOSE 198 mg/dL (70-104); LYMPHS 1 % (21-51); MONO 3 % (1-9); POTASSIUM 3.7 mmol/L (3.5-5.1); SEGS 92 % (42-75); SODIUM 140 mmol/L (136-145); TCO2 23 mmol/L (25-35)
[2018-05-10] MEDS ORDERED: HEPARIN 25,000 UNITS/D5W 25,000 UNIT/250 ML IV.SOLN ONE (08:40)
[2018-05-10] MEDS: CATAPRES PO SCH (09:00)
[2018-05-10] MEDS: ROBAXIN PO SCH (09:00)
[2018-05-10] MEDS: ASPIRIN EC PO SCH (09:00)
[2018-05-10] MEDS: FLOMAX PO SCH (09:00)
--- NOTE | 2018-05-10 09:11 | EKG Report ---
Test Performed on : 05/10/2018 04:58:00 AM Test Reason : ED. NO EKG ORDER FOR MUSE Blood Pressure : / mmHG Vent. Rate : 162 BPM Atrial Rate : 170 BPM P-R Int : 000 ms QRS Dur : 084 ms QT Int : 188 ms P-R-T Axes : 000 022 095 degrees QTc Int : 308 ms Atrial fibrillation. with rapid ventricular response. with premature ventricular or aberrantly conduc maxi complexes. ST elevation, consider inferolateral injury or acute infarct ACUTE FL / STEMI Consider right ventricular involvement in acute inferior infarct Abnormal ECG When compared with ECG of 07-MAY-2018 12:40, (Unconfirmed) Significant changes have occurred Unconfirmed Result
[2018-05-10] MEDS ORDERED: HEPARIN 25,000 UNITS/D5W 25,000 UNIT/250 ML IV.SOLN IV SCH (09:30)
[2018-05-10] MEDS ORDERED: LASIX IV ONE (09:43)
--- NOTE | 2018-05-10 09:48 | Diag Imaging Result Doc PS360 ---
EXAM: CHEST-PORTABLE HISTORY: AFIB TECHNIQUE: Chest single view COMPARISON: 05/07/2018 FINDINGS: Interval development of dense bilateral infiltrates in the mid and lower lungs. Interval decrease in the size of the small left pleural effusion. Heart is borderline mildly prominent. IMPRESSION: Dense bilateral infiltrates. Electronically signed by Flo Sarmiento 05/10/2018 9:46 AM
[2018-05-10] MEDS ORDERED: LASIX ONE (09:58)
--- NOTE | 2018-05-10 10:07 | PROGRESS NOTE ---
DATE: 05/10/2018 SUBJECTIVE: This morning Mr. De León refers to be feeling ill. He said throughout last night he was having difficulty breathing and he did have some on-and-off chest discomfort. The patient was found to be in atrial fibrillation RVR early this morning and was evaluated by the night staff. He was started on Cardizem drip. The patient was transferred to the ER. Multiple EKGs that were done between 5:30 to about 6 did show some inferior wall lead 2, lead 3 ST- segment elevations. However, at about 8:30, another EKG has shown normal sinus with ST-segment elevation having resolved. There is still remarkable T-wave inversion in the lateral leads. Mr. De León currently continues to have some chest discomfort, but he said he feels slightly better, and he also continues to have difficulty breathing and he is on BiPAP. OBJECTIVE: Vital signs: Blood pressure is 134/90, pulse is 94, respiration is 42, temperature is 98.8 degrees. Patient was saturating about 98% on the BiPAP. General exam: Mr. De León is a 53- year-old male. He is in bed, seems to be in mild respiratory distress. HEENT: Mucosa is pink and moist. Anicteric. Acyanotic. Neck: Supple. There is no JVD. Chest: Air entry is bilaterally reduced. There are crepitations posteriorly. Did not hear any wheezing. Cardiovascular: Regular rate and rhythm. There are occasional extrasystolic beats, but no murmurs. Abdomen: Soft. Bowel sounds are present. There is no hepatosplenomegaly. Extremities: No pedal edema. Distal pulses present. HUMAN CAPITAL CONSULTANT: Patient is awake, alert, oriented. LABORATORY DATA: WBC is up to 44.31, hemoglobin is 13.6, platelet count of 424. There is only 4% of bands, 92% is neutrophils. Chemistry is all reviewed; all seems to be within normal range. The troponin has gone up and patient's ProBNP is also 5333, which has remarkably gone up. IMAGING STUDIES: A chest x-ray that was ordered is still pending, but it appears that the patient has bilateral pulmonary edema with worsening pleural effusion. We are still awaiting for the image to populate and the official report. ASSESSMENT: 1. Atrial fibrillation with rapid ventricular response of acute onset. The patient is currently on Cardizem drip and is also on heparin drip. Cardiology has been notified. 2. Acute hypoxemic respiratory failure. The patient's chest x-ray seems to suggest worsening of pulmonary infiltration, as well as pleural effusion. The etiology of this pleural effusion is still unclear. The patient is pending thoracentesis. 3. History of interstitial lung disease noted. 4. Bilateral pleural effusions, left more than right. The patient was pending thoracentesis since admission. It has not been done yet because he was on Plavix. 5. Severe peripheral vascular disease and coronary artery disease status post stents. The patient's troponin has gone up. Echocardiogram did show ejection fraction of 40% to 45%. Cardiology has been consulted. Will be pending their further recommendations and then move from there. 6. NSTEMI: patient has a few traces with inferior wall ST elevation. He is currently on Heparin drip. Cardiology aware PLAN: So, in general, Mr. De León's condition has gotten worse. White cell count has remarkably gone up. We are not sure if he does have any empyema or pulmonary infection that is triggering all these problems. He is on antibiotics and I have added meropenem. We will also get procalcitonin and get Infectious Disease to see him. On the other side, it is very possible that Mr. De León has severe ischemic cardiomyopathy, has gone into atrial fibrillation with rapid ventricular response, has put more stress on the heart and gone even more into congestive heart failure. Cardiology has been consulted and we are waiting on their evaluation today. We have also reached out to the transfer center, faxed all the EKGs to them. At this point, they think that the ST-segment has normalized on the 8:15 EKG, and because of that there is no emergency in trying to transfer the patient there, and that they will recommend for Cardiology to see him first over here and make further recommendations. Mr. De León will be re-evaluated later on today and, depending on Cardiology's further recommendations, we will go from there. If there is no transfer, we will get him to ICU for further medical care. I have explained the plan to the patient and the family members that were at the bedside at the time of the encounter. CRITICAL CARE TIME SPENT: 1 hour. cc: MD PORFIRIO Mario
[2018-05-10 10:38] LABS: ALLEN TEST YES; BE -1.5 mmoll (-3.0-3.0); BLOOD TYPE ARTERIAL; HCO3-(ACT) 23.7 mmoll (20.0-26.0); METHB 1.2 % (0.0-1.5); O2(CT) 17.3 mL/dL (15.0-23.0); O2HB 93.2 % (95.0-99.0); PCO2(98.6) 41 mmHg (35-45); PO2(98.6) 68 mmHg (60-100); SAMPLE BLOOD; SAO2 96.2 % (95.0-100.0); THB 13.2 g/dL (11.5-17.4); pH(98.6) 7.37 (7.35-7.45)
[2018-05-10 10:42] LABS: MODALITY BI PAP
[2018-05-10] MEDS: VASOTEC PO SCH (10:44)
[2018-05-10] MEDS ORDERED: MERREM 1 GM in NS 50 ML IV SCH (11:00)
[2018-05-10] MEDS: PROTONIX IV SCH (11:06)
[2018-05-10 11:27] LABS: INR 1.19
[2018-05-10 11:28] LABS: PTT 63.6 Seconds (22.3-41.8)
[2018-05-10] MEDS ORDERED: ZOFRAN IV PRN (11:30)
[2018-05-10] MEDS: VALIUM PO PRN (11:57)
[2018-05-10 12:00] LABS: AGAP 17; ALB/GLOB RATIO 0.9; ALBUMIN 3.1 g/dL (3.5-5.0); ALKALINE PHOSPHATASE 95 U/L (32-122); BUN 17 mg/dL (8-22); CALCIUM 7.8 mg/dL (8.8-10.2); CHLORIDE 102 mmol/L (98-107); COSMO 289; CREATININE 0.9 mg/dL (0.7-1.2); ESTIMATED GFR > 60; GLUCOSE 202 mg/dL (70-104); GOT 146 U/L (10-34); GPT 33 U/L (10-44); MAGNESIUM 1.7 mg/dL (1.5-2.7); SODIUM 141 mmol/L (136-145); TCO2 22 mmol/L (25-35); TOTAL BILIRUBIN 0.79 mg/dL (0.20-1.00); TOTAL PROTEIN 6.6 g/dL (6.3-8.3)
--- NOTE | 2018-05-10 12:17 | CARDIOLOGY CONSULTATION ---
DATE: 05/10/2018 CHIEF COMPLAINT: Chest pain. Dyspnea. REASON FOR CONSULTATION: Possible myocardial infarction. HISTORY: Mr. De León presented to the hospital for evaluation on May 07 at about 11 a.m. At that time, they did a chest x-ray that showed moderate left pleural effusion. He had a left lower lobe consolidation. He was complaining of dyspnea and chest discomfort that had been going on for few days. He had received some treatment at an outside urgent care or ambulatory clinic. Upon presentation, they consulted Pulmonary. They were planning on doing a thoracentesis to remove fluid from the left chest which is where the effusion is largest. When he first presented, his troponin level was negative and his first EKG showed no acute ischemic changes. Last night, the patient developed decompensation with acute dyspnea. His white count jumped to 44,000. His EKG revealed acute ST-segment elevation in the inferior leads, the apical leads with rapid atrial fibrillation. It was documented at 6:18 and 6:19 a.m. Subsequent EKG at 8:[address]- segment is coming down. However, it is definite acute ME pattern in the inferior leads and suspicious in the apical leads. CPK has been reported as 601, CK-MB fraction is 65.4, troponin is 0.447. His proBNP has jumped from 1100 on admission to 5300 now. The patient is on a BiPAP system to support him. He is not having any pain at this time. He did have pain early this morning. Heart rate is also better controlled. PAST HISTORY: Positive for severe coronary artery. In 2016, he underwent 2 stents to LAD and 2 stents to right coronary artery at [facility]. He has seen Dr. Alvarenga before here in [place] and he has seen Dr. Tai in [place]. He has COPD, abnormal chest x-ray that is being followed at [facility]. Possible pneumonitis, chronic. He has hyperlipidemia, hypertension. He has fibromyalgia and rheumatoid arthritis. He has had hypothyroidism. His history also includes peptic ulcer, peripheral vascular disease with stents to the iliac vessels. Dr. Donnie Mayo did that in 2013. HOME MEDICATIONS: At the time of admission included: 1. Aspirin daily. 2. Clonidine twice a day. 3. Plavix 75 daily. 4. Diazepam 3 times a day. 5. Enalapril 1 tablet daily. 6. Methocarbamol 750 three times a day. 7. Protonix 1 tablet daily. 8. Prednisone 1 tablet daily. 9. Tamsulosin daily. 10. Tramadol. ALLERGIES: To penicillin. REVIEW OF SYSTEMS: Not obtainable. The patient is in too much distress to cooperate. FAMILY HISTORY: Noncontributory. SOCIAL HISTORY: He has been a smoker. He denies alcohol or drug use. Patient lives with . PHYSICAL EXAMINATION: Vital signs: Right now, blood pressure is 126/92, pulse 84, respirations 35, temperature is 98.8 degrees. General: Awake, in some distress, pale, tachypneic. HEENT: Unremarkable. Chest: Bilateral rhonchi. Diminished breath sounds bilaterally. Dullness at the bases. Heart: Sounds are slightly irregular. No gallop or murmur is noted. Distant. Abdomen: Soft, nontender. Extremities: Showed decreased pulses. No peripheral edema. Neurologic: Nonfocal. Moves 4 extremities. LABORATORY DATA: His blood [place] [address], hemoglobin 13.6. Sodium is 140, potassium 3.7, BUN 13, creatinine 1.0. IMPRESSION: 1. Patient with acute respiratory failure, hypoxemic with bilateral pleural effusions, possible empyema, pneumonia. 2. Acute myocardial infarction involving the apical inferior wall of the left ventricle. The patient has had previous stents to right coronary artery and LAD in 2016. 3. History of rheumatoid arthritis. 4. History of chronic lung infiltrates, possible rheumatoid lung. 5. Hypertension. 6. Peripheral vascular disease, previous stents to the iliac system. RECOMMENDATION: At this point in time, the patient is in critical condition. We will try to support him as best as we can at this hospital. With his possible empyema, he is a poor candidate for coronary intervention. We will try to keep him on heparin. We will keep him on antiplatelet agents. Prognosis is very guarded. We will follow him along. cc: Celio Payton MD [facility]
[2018-05-10 12:42] LABS: CK INDEX 18.5 (0.0-2.5); CK-MB 287.2 ng/mL (0.0-5.0)
--- NOTE | 2018-05-10 12:46 | EKG Report ---
Test Performed on : 05/10/2018 12:16:09 PM Test Reason : chest pain Blood Pressure : / mmHG Vent. Rate : 083 BPM Atrial Rate : 083 BPM P-R Int : 120 ms QRS Dur : 092 ms QT Int : 402 ms P-R-T Axes : 027 -05 -48 degrees QTc Int : 472 ms Sinus rhythm. with occasional premature ventricular complexes. Inferior infarct (cited on or before 07-MAY-2018) T wave abnormality, consider lateral ischemia Abnormal ECG When compared with ECG of 10-MAY-2018 08:15, (Unconfirmed) premature ventricular complexes. are now present premature atrial complexes. are no longer present Unconfirmed Result
--- NOTE | 2018-05-10 12:51 | EKG Report ---
Test Performed on : 05/10/2018 08:15:55 AM Test Reason : ED. NO order in [place] Blood Pressure : / mmHG Vent. Rate : 091 BPM Atrial Rate : 091 BPM P-R Int : 116 ms QRS Dur : 086 ms QT Int : 372 ms P-R-T Axes : -21 -12 -34 degrees QTc Int : 457 ms Sinus rhythm. with premature atrial complexes. Inferior infarct (cited on or before 07-MAY-2018) T wave abnormality, consider lateral ischemia Abnormal ECG When compared with ECG of 10-MAY-2018 06:31, (Unconfirmed) premature ventricular complexes. are no longer present premature atrial complexes. are now present Unconfirmed Result
[2018-05-10] MEDS ORDERED: HEPARIN ONE (14:09)
[2018-05-10] MEDS ORDERED: LOPRESSOR ONE (14:09)
[2018-05-10 15:28] VITALS: BP 124/90
--- NOTE | 2018-05-13 07:09 | DISCHARGE SUMMARY ---
ADMISSION DATE: 05/07/2018 DISCHARGE DATE: 05/10/2018 DISPOSITION: [facility]. ACCEPTING PHYSICIAN: Dr. Bonilla REASON FOR TRANSFER: Higher level of care. CONSULTATIONS DURING THIS ADMISSION: Cardiology was consulted and the patient was seen by Dr. Payton. Pulmonary Medicine was consulted and the patient was seen by Dr. Norman. EVASIVE PROCEDURES DURING ADMISSION: None. IMAGING STUDIES OF SIGNIFICANCE: Echocardiogram did show an ejection fraction of about 40 to 45 percent with global hypokinesis. Ventricle dilated with end-diastolic dimension of 5.9. A CT scan of the chest did show bilateral pleural effusions, small on the right and moderate on the left, chronic peripheral interstitial opacity compatible with pulmonary fibrosis. A repeat chest x-ray did show dense bilateral infiltrates. ADMISSION DIAGNOSES: 1. Left chest pain. 2. Left lower lobe pneumonia. 3. History of pulmonary fibrosis. 4. Steroid dependent rheumatoid arthritis. 5. Leukocytosis. DIAGNOSES AT THE TIME OF TRANSFER: 1. Atrial fibrillation with rapid ventricular response. 2. Acute hypoxemic respiratory failure. 3. History of interstitial lung disease. 4. Bilateral pleural effusions, more on the left than the right. 5. Severe peripheral vascular disease. 6. History of coronary artery disease status post stents in the past. 7. Acute on chronic congestive heart failure with ejection fraction of 40 to 45 percent. 8. Acute coronary syndrome (transient ST-segment elevation versus [id number]-elevation myocardial infarction). 9. History of rheumatoid arthritis on chronic steroid therapy. PRESENTING COMPLAINT: Intermittent chest pain and shortness of breath. HISTORY OF PRESENTING COMPLAINT: Mr. De León is a 53-year-old male with multiple comorbidities including COPD, pulmonary fibrosis, rheumatoid arthritis, chronic steroid therapy, and coronary artery disease status post stents. He came to the emergency department at [facility] because of shortness of breath and intermittent chest pain. The patient was evaluated. A CT scan of the chest did show pleural effusion and interstitial opacities. The patient was admitted to [facility] initially for pneumonia and respiratory failure management. HOSPITAL COURSE: Mr. De León was transferred from [place] to [facility] for a higher level of care. During his stay at [facility], the patient was on antibiotics with adequate hydration and pain management. Plavix was withheld with anticipation of letting him do a thoracentesis to study the course and etiology of the pleural effusions. Unfortunately on the night of May 09 to early May 10, Mr. De León started having some intermittent chest pain and shortness of breath. He went into atrial fibrillation with RVR and was transferred from the floor to the ER because of lack ICU beds. I saw Mr. De León in the resilient tile installer on the . He did complain of some generalized weakness and feeling generally weak and sick. Review of his EKGs early that morning did reveal some ST-segment elevation that had transiently resolved. Cardiology was consulted and the patient was seen by Dr. Payton. Discussions were held with the [facility] in [place]. A decision was made to transfer the patient to the hospitalist services in [place] and get Cardiology and other subspecialties to evaluate him. The patient was also seen by Pulmonary Medicine in [facility]. I personally reached out to the transfer center and was able to arrange with Dr. Bonilla, who was grateful enough to accept the patient Mr. De León was subsequently transferred to [facility] under Dr. Bonilla's service. The transfer arrangements and other discussions were held with the patient and with the family members and they were all in agreement. Time spent for discharge was 37 minutes. cc: MD Sadie Mario CRNP Dr. Najjar Luis N. Villanueva, MD Dr. Boyeinpally
--- NOTE | 2018-05-14 10:49 | ECHO REPORT ---
ORDER DATE: 05/10/2018 SUMMARY: 1. Loaded 2-dimensional echocardiogram performed to reassess left ventricular systolic function. Study is technically difficult due to limited acoustic window quality. 2. Normal left ventricular chamber size with mild concentric left hypertrophy is suggested. Estimated left ejection fraction approximately 30% in the setting of global hypokinesis. 3. No pericardial effusion. 4. Appearance of inferior vena cava suggests normal central venous pressure. cc: MD Paolo Messina CRNP
== END 2018-05-10 15:21 | disposition short-term general hospital (02) | DRG 193 ==
LOC: P.ED 11:01 → P.MEDSURG 16:18 → SUATTDRO 16:18 → P.EDIPHOLD 16:19 → P.ICU 16:19 → EDIPHOLD 16:19 → 3S 19:24 → 3N 05-09 11:28 → EDIPHOLD 05-10 08:07 → ICU 05-10 14:47 → EDIPHOLD 05-10 14:59
PROVIDERS: ATTEND Internal Medicine
CPT/HCPCS: 71010; 71020; 71045; 71046; 71260; 80048; 80053; 80202; 81001; 82550; 82553; 82805; 83605; 83735; 83880; 84145; 84484; 85025; 85610; 85651; 85730; 86140; 87040; 87070; 87205; 87275; 87276; 87804; 93005; 93010; 93306; 93308; 94640; 94761; 94799; 96365; 96367; 96375; 99285; A9270; C9113; J1160; J1644; J1940; J1956; J2060; J2185; J2270; J2405; J2920; J3370; J7030; J7040; J7050; J7506; J7512; Q9967; S0164